=== PATIENT | male | born 1980 | race Caucasian/White ===

== ENCOUNTER 2017-04-12 10:46 | Emergency (ER) | payer MEDICAID ==
[~2017-04-12] VITALS: Ht 160 cm; Wt 66.0 kg
[2017-04-12] MEDS ORDERED: LIDOCAINE HCL 1% 20ML VIAL (Pyxis) INJ MC ONE (12:00)
[2017-04-12] MEDS ORDERED: TETANUS, DIPHTHERIA, PERTUSSIS VAC/PF 0.5ML (>7YR OLD) IM ONE (12:00)
[2017-04-12] MEDS ORDERED: BACITRACIN ZINC OINT UDPKT TOP ONE (12:00)
[2017-04-12 12:52] VITALS: BP 112/68
== END 2017-04-12 12:53 | disposition home or self-care (01) ==
LOC: ER 12:19
DX: S61.211A Laceration without foreign body of left index finger without damage to nail, initial encounter (principal); F17.210 Nicotine dependence, cigarettes, uncomplicated; Z91.018 Allergy to other foods; W26.0XXA Contact with knife, initial encounter; Y93.89 Activity, other specified; Y92.010 Kitchen of single-family (private) house as the place of occurrence of the external cause
CPT/HCPCS: 12002; 90471; 90715; 99283; J3490; Z7610